=== PATIENT | male | born 2000 | race Caucasian/White ===

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

== ENCOUNTER 2021-01-03 19:02 | Emergency (ER) | payer OTHER ==
--- OUTSIDE RECORDS SUMMARY | 2021-01-03 19:06 | EXTERNAL MEDICAL SUMMARY RPT | Continuity of Care Document ---
:2000 Demographics Phone Unavailable Preferred Language Unknown Marital Status Unknown Confucianism Affiliation Unknown Race Unknown Ethnic Group Unknown Author Organization [facility] Address [address] [place] [address] Phone Allergies Encounters Medications Problems Results
--- OUTSIDE RECORDS SUMMARY | 2021-01-03 19:28 | EXTERNAL MEDICAL SUMMARY RPT | Continuity of Care Document ---
:2000 Demographics Phone Unavailable Preferred Language Unknown Marital Status Unknown Faith Affiliation Unknown Race Unknown Ethnic Group Unknown Author Organization [facility] Address [address] [place] [address] Phone Allergies Encounters Medications Problems Results
[2021-01-03] MEDS ORDERED: CHERRY SYRUP 10 ML UDC PO ONE (19:58)
[2021-01-03] MEDS ORDERED: DEXAMETHASONE 10 MG/ML VIAL PO STA (19:58)
[2021-01-03] MEDS ORDERED: AMOX/CLAV 875 MG/125 MG TABLET PO STA (19:58)
[2021-01-03 20:08] LABS: BASOPHILS # (AUTO) 0.1 10^3/uL (0.0-0.1); BASOPHILS % (AUTO) 0.5 %; EOSINOPHILS % (AUTO) 0.1 %; HCT - HEMATOCRIT 46.2 % (42.0-52.0); LYMPHOCYTES # (AUTO) 1.3 10^3/uL (1.5-3.5); LYMPHOCYTES % (AUTO) 13.3 %; MEAN CORPUSCULAR HEMOGLOBIN 29.4 pg (27.0-31.0); MEAN CORPUSCULAR HGB CONC 34.6 g/dL (32.0-36.0); MEAN CORPUSCULAR VOLUME 84.8 fL (80.0-94.0); MEAN PLATELET VOLUME 11.5 fL (7.4-11.4); MONOCYTES # (AUTO) 0.8 10^3/uL (0.0-1.0); MONOCYTES % (AUTO) 7.7 %; NEUTROPHILS # (AUTO) 7.8 10^3/uL (1.5-6.6); NEUTROPHILS % (AUTO) 78.1 %; PLT - PLATELET COUNT 182 10^3/uL (130-450); RED BLOOD COUNT 5.45 10^6/uL (4.70-6.10); RED CELL DISTRIBUTION WIDTH 12.6 % (12.0-15.0); WHITE BLOOD COUNT 9.9 x10^3/uL (4.8-10.8)
[2021-01-03 20:22] LABS: ACETAMINOPHEN < 10 ug/mL (10-30); ALBUMIN 5.3 g/dL (3.2-5.5); ALBUMIN/GLOBULIN RATIO 1.5 (1.0-2.2); ALKALINE PHOSPHATASE 76 IU/L (42-121); ALT ALANINE AMINOTRANSFERASE 29 IU/L (10-60); AST ASPARTATE AMINOTRANSFERASE 31 IU/L (10-42); BUN - BLOOD UREA NITROGEN 14 mg/dL (6-20); CALCIUM 9.9 mg/dL (8.5-10.3); CARBON DIOXIDE - CO2 26 mmol/L (21-32); CHLORIDE 103 mmol/L (101-111); ETOH - ETHANOL < 5.0 mg/dL; GFR - MDRD 96 (>89); GLUCOSE 107 mg/dL (70-100); LIPASE 23 U/L (22-51); SALICYLATE < 6.0 mg/dL; SODIUM 139 mmol/L (135-145); TOTAL PROTEIN 8.8 g/dL (6.7-8.2)
[2021-01-03 21:40] LABS: MUDS CUTOFF CONCENTRATIONS CUTOFF CONC BELOW:
[2021-01-03 21:42] LABS: BILIRUBIN,URINE NEGATIVE (NEGATIVE); GLUCOSE, URINE (UA) NEGATIVE (NEGATIVE); KETONES,URINE (UA) NEGATIVE (NEGATIVE); LEUKOCYTE ESTERASE, URINE NEGATIVE (NEGATIVE); NITRITE,URINE NEGATIVE (NEGATIVE); OCCULT BLOOD,URINE NEGATIVE (NEGATIVE); PROTEIN,URINE 30 mg/dL (NEGATIVE); UROBILINOGEN,URINE 0.2 (NORMAL) E.U./dL (NORMAL)
[2021-01-03 21:44] LABS: CLARITY,URINE CLEAR (CLEAR)
[2021-01-03 21:56] LABS: AMPHETAMINE SCREEN,URINE NEGATIVE (NEGATIVE); BARBITURATE SCREEN,UR NEGATIVE (NEGATIVE); BENZODIAZEPINES SCREEN, URINE NEGATIVE (NEGATIVE); COCAINE SCREEN URINE NEGATIVE (NEGATIVE); METHADONE SCREEN, URINE NEGATIVE (NEGATIVE); METHAMPHETAMINES SCREEN, URINE NEGATIVE (NEGATIVE); OPIATE SCREEN, URINE NEGATIVE (NEGATIVE); OXYCODONE SCREEN, URINE NEGATIVE (NEGATIVE); PROPOXYPHENE SCREEN, URINE NEGATIVE (NEGATIVE); THC CANNABINOID SCREEN, URINE POSITIVE (NEGATIVE); TRICYCLIC ANTIDEPRESSANT,URINE NEGATIVE (NEGATIVE)
--- NOTE | 2021-01-03 22:08 | ED Physician Documentation ---
PD HPI MHE - Stated complaint Stated Complaint: FIT FOR CONFINEMENT - Chief complaint Chief Complaint: General - History obtained from History obtained from: Patient - History of Present Illness Primary symptom: Suicidal ideation, Self harm - cut Timing - onset: Today Contributing factors: Sig other Similar symptoms before: Has not had sx before Recently seen: Not recently seen - Additional information Additional information: 20-year-old male was brought into the emergency department by police asking for a fit for confinement. The patient has scratches left forearm repeatedly with broken glass in a suicide attempt. He states that he is distraught over the break-up with his fiance and feels he has no reason to live. He does acknowledge a cough persistent for 8 months. He has had his tonsils out last year and this was after 8 episodes of tonsillitis. Review of Systems Constitutional: denies: Fever Eyes: denies: Decreased vision Ears: denies: Ear pain Nose: reports: Rhinorrhea / runny nose, Congestion Throat: denies: Sore throat Cardiac: denies: Chest pain / pressure, Palpitations Respiratory: reports: Cough. denies: Dyspnea GI: denies: Vomiting PD PAST MEDICAL HISTORY - Past Medical History Past Medical History: Yes Cardiovascular: None Respiratory: None Neuro: None Endocrine/Autoimmune: None GI: None : None HEENT: None, Other Psych: Depression Musculoskeletal: None Derm: None - Past Surgical History Past Surgical History: No HEENT: Tonsil/Adenoidectomy - Present Medications Home Medications: Ambulatory Orders Medication Instructions Recorded Confirmed Amox/Clav 875/125 [Augmentin] 1 each PO Q12H #20 tablet 01/03/21 - Allergies Allergies/Adverse Reactions: Allergies Allergy/AdvReac Type Severity Reaction Status Date / Time No Known Drug Allergies Allergy Verified 01/03/21 19:19 - Social History Does the pt smoke?: No Smoking Status: Never smoker Does the pt drink ETOH?: No Does the pt have substance abuse?: No - Immunizations Immunizations are current?: Yes - POLST Patient has POLST: No PD ED PE NORMAL - Vitals Vital signs reviewed: Yes (Tachycardic and hypertensive) - General General: Alert and oriented X 3, Well developed/nourished, Other (The patient is tearful on arrival to the emergency department) - HEENT HEENT: Atraumatic, PERRL, EOMI, Pharynx benign, Other (Both TMs are flush with distorted landmarks) - Neck Neck: Supple, no meningeal sign, No bony TTP - Cardiac Cardiac: No murmur, Other (Tachycardic to 100) - Respiratory Respiratory: No respiratory distress, Clear bilaterally - Abdomen Abdomen: Normal bowel sounds, Soft, Non tender, Non distended, No organomegaly - Back Back: No CVA TTP, No spinal TTP - Derm Derm: Normal color, Warm and dry, No rash - Extremities Extremities: No deformity, No edema, Other (There are multiple superficial hesitation zaragoza to the left forearm both vertically and horizontally. None are deep.) - Neuro Neuro: Alert and oriented X 3, core measures abstractor 2-12 intact, No motor deficit, No sensory deficit, Normal speech Eye Opening: Spontaneous Motor: Obeys Commands Verbal: Oriented GCS Score: 15 - Psych Psych: Other (The patient's mood is withdrawn and his affect is sad) Results - Vitals Vitals: Vital Signs - 24 hr 01/03/21 01/03/21 19:10 22:14 Temperature 36.8 C 36.5 C Heart Rate 124 H 90 Respiratory 16 16 Rate Blood Pressure 146/97 H 130/90 H O2 Saturation 93 94 Oxygen O2 Source Room air - Labs Labs: Laboratory Tests 01/03/21 01/03/21 01/03/21 20:03 20:03 21:30 WBC 9.9 RBC 5.45 Hgb 16.0 Hct 46.2 MCV 84.8 MCH 29.4 MCHC 34.6 RDW 12.6 Plt Count 182 MPV 11.5 H Neut # (Auto) 7.8 H Lymph # (Auto) 1.3 L Sibley # (Auto) 0.8 Eos # (Auto) 0.0 Baso # (Auto) 0.1 Absolute Nucleated RBC 0.00 Nucleated RBC % 0.0 Sodium 139 Potassium 4.0 Chloride 103 Carbon Dioxide 26 Anion Gap 10.0 BUN 14 Creatinine 1.0 Estimated GFR (MDRD) 96 Glucose 107 H Calcium 9.9 Total Bilirubin 1.0 AST 31 ALT 29 Alkaline Phosphatase 76 Total Protein 8.8 H Albumin 5.3 Globulin 3.5 Albumin/Globulin Ratio 1.5 Lipase 23 Urine Color YELLOW Urine Clarity CLEAR Urine pH 6.0 Ur Specific Willard >=1.030 H Urine Protein 30 H Urine Glucose (UA) NEGATIVE Urine Ketones NEGATIVE Urine Occult Blood NEGATIVE Urine Nitrite NEGATIVE Urine Bilirubin NEGATIVE Urine Urobilinogen 0.2 (NORMAL) Ur Leukocyte Esterase NEGATIVE Urine RBC None Seen Urine WBC 0-3 Ur Squamous Epith Cells NONE SEEN Urine Bacteria None Seen Urine Casts 3-5 Fine Granular Ur Microscopic Review INDICATED Urine Culture Comments NOT INDICATED Salicylates < 6.0 Urine Opiates Screen NEGATIVE Ur Oxycodone Screen NEGATIVE Urine Methadone Screen NEGATIVE Ur Propoxyphene Screen NEGATIVE Acetaminophen < 10 L Ur Barbiturates Screen NEGATIVE Ur Tricyclics Screen NEGATIVE Ur Phencyclidine Scrn NEGATIVE Ur Amphetamine Screen NEGATIVE U Methamphetamines Scrn NEGATIVE U Benzodiazepines Scrn NEGATIVE Urine Cocaine Screen NEGATIVE U Cannabinoids Screen POSITIVE H Ethyl Alcohol < 5.0 PD MEDICAL DECISION MAKING - ED course Complexity details: reviewed results, re-evaluated patient, considered differential, d/w patient ED course: 20-year-old male presents to the emergency department with acute suicidal ideation and hesitation zaragoza to the left forearm. He is in police custody and will be taken to the [facility] from here. He does have otitis on exam and he has a history of ENT infection that has been difficult to control. His pharynx looks normal today. He has bilateral otitis and he is treated with dexamethasone and Augmentin. Prior to leaving the emergency department the patient appears to have improved. He is discharged into custody of police to have mental health evaluation done at the [facility]. Departure - Departure Disposition: 01 Home, Self Care Clinical Impression: Suicidal ideation Abrasion of forearm Qualifiers: Encounter type: initial encounter Laterality: left Qualified Code(s): S50.812A - Abrasion of left forearm, initial encounter Otitis media Qualifiers: Otitis media type: suppurative Chronicity: acute Laterality: bilateral Recurrence: not specified as recurrent Spontaneous tympanic membrane rupture: without spontaneous rupture Qualified Code(s): H66.003 - Acute suppurative otitis media without spontaneous rupture of ear drum, bilateral Condition: Stable Instructions: ED Abrasion, ED Otitis Media Acute Adult Follow-Up: Price Munoz MD [Physician No Access] - Prescriptions: Amox/Clav 875/125 [Augmentin] 1 each PO Q12H #20 tablet Discharge Date/Time: 01/03/21 22:14
[2021-01-03 22:16] VITALS: BP 130/90
[2021-01-03 22:18] LABS: BACTERIA,URINE None Seen /HPF (None Seen); CASTS, URINE 3-5 Fine Granular /LPF; RBC,URINE None Seen /HPF (0-5); SQUAMOUS EPITHELIAL CELL,UR NONE SEEN (<= Few); WBC,URINE 0-3 /HPF (0-3)
== END 2021-01-03 22:14 | disposition home or self-care (01) ==
LOC: ED 19:02
DX: S50.812A Abrasion of left forearm, initial encounter (principal); X78.0XXA Intentional self-harm by sharp glass, initial encounter; H66.003 Acute suppurative otitis media without spontaneous rupture of ear drum, bilateral
CPT/HCPCS: 36415; 80053; 80306; 80307; 80320; 80329; 81001; 83690; 85025; 99283; 99284; A9270; 81003; 87086

== ENCOUNTER 2021-06-28 12:17 | Emergency (ER) | payer OTHER, MEDICAID ==
[2021-06-28 12:34] VITALS: BP 143/82
[2021-06-28] MEDS ORDERED: ALBUTEROL 1 PUFF INH STA (15:02)
--- NOTE | 2021-06-28 15:06 | ED Physician Documentation ---
PD HPI URI - Stated complaint Stated Complaint: COUGH - Chief complaint Chief Complaint: Heent - History obtained from History obtained from: Patient - History of Present Illness Timing - onset: How many days ago (3) Timing duration: Days (3) Timing details: Gradual onset Pain level max: 0 Pain level now: 0 Associated symptoms: Nasal congestion, Rhinorrhea, Productive cough (Occasional clear sputum). No: Fever, Chills, Sweats, Ear pain, Sinus pain, Sore throat, Swollen nodes, Dry cough, Hemoptysis, Chest pain, Dyspnea, NVD, Bilateral edema, Unilateral edema - Additional information Additional information: Patient with 3 days of cough and nasal congestion. He is not vaccinated for Covid. He quit smoking cigarettes 2 weeks ago. He does vape and smoke marijuana. No fevers. No recent travel. Nothing makes it better or worse. Review of Systems Constitutional: denies: Fever, Chills GI: denies: Vomiting, Diarrhea Skin: denies: Rash Musculoskeletal: denies: Neck pain, Back pain Neurologic: denies: Headache PD PAST MEDICAL HISTORY - Past Medical History Cardiovascular: None Respiratory: None Neuro: None Endocrine/Autoimmune: None GI: None : None HEENT: None, Other Psych: Depression Musculoskeletal: None Derm: None - Past Surgical History Past Surgical History: No HEENT: Tonsil/Adenoidectomy - Present Medications Home Medications: Ambulatory Orders Medication Instructions Recorded Confirmed Amox/Clav 875/125 [Augmentin] 1 each PO Q12H #20 tablet 01/03/21 Albuterol Sulf [Ventolin Hfa 1 - 2 puffs INH Q4HR PRN #1 inhaler 06/28/21 Inhaler] Benzonatate [Tessalon] 200 mg PO TID PRN #30 cap 06/28/21 Cetirizine HCl/Pseudoephedrine 1 each PO BID PRN #30 ea 06/28/21 [Zyrtec-D Tablet] - Allergies Allergies/Adverse Reactions: Allergies Allergy/AdvReac Type Severity Reaction Status Date / Time No Known Drug Allergies Allergy Verified 06/28/21 12:34 - Social History Does the pt smoke?: No Smoking Status: Never smoker Does the pt drink ETOH?: No Does the pt have substance abuse?: No - Immunizations Immunizations are current?: Yes - POLST Patient has POLST: No PD ED PE NORMAL - Vitals Vital signs reviewed: Yes - General General: Alert and oriented X 3, No acute distress - HEENT HEENT: Moist mucous membranes - Neck Neck: Supple, no meningeal sign - Cardiac Cardiac: RRR, Strong equal pulses - Respiratory Respiratory: No respiratory distress, Clear bilaterally - Abdomen Abdomen: Soft, Non tender, Non distended - Derm Derm: Warm and dry - Neuro Neuro: Alert and oriented X 3 - Psych Psych: Normal mood, Normal affect Results - Vitals Vitals: Vital Signs - 24 hr 06/28/21 06/28/21 06/28/21 12:29 15:21 15:40 Temperature 37 C Heart Rate 90 80 80 Respiratory 16 16 16 Rate Blood Pressure 143/82 H 143/82 H O2 Saturation 96 98 Oxygen O2 Source Room air - Rads (name of study) cxr Radiology: Final report received, EMP read contemporaneously, See rad report (no acute abnormality) PD MEDICAL DECISION MAKING - ED course Complexity details: reviewed results, re-evaluated patient, considered differential, d/w patient ED course: No acute findings on x-ray. We will have the patient follow-up with his doctor for further care. Patient is well-appearing, nontoxic. Afebrile. Covid testing performed. Patient counseled regarding signs and symptoms for which I believe and urgent re-evaluation would be necessary. Patient with good understanding of and agreement to plan and is comfortable going home at this time This document was made in part using voice recognition software. While efforts are made to proofread this document, sound alike and grammatical errors may occur. Departure - Departure Disposition: 01 Home, Self Care Clinical Impression: Viral URI Condition: Good Instructions: ED Viral Syndrome Follow-Up: your,doctor as needed. [Other] Prescriptions: Albuterol Sulf [Ventolin Hfa Inhaler] 1 - 2 puffs INH Q4HR PRN #1 inhaler PRN Reason: Shortness Of Air/Wheezing Benzonatate [Tessalon] 200 mg PO TID PRN #30 cap PRN Reason: Cough Cetirizine HCl/Pseudoephedrine [Zyrtec-D Tablet] 1 each PO BID PRN #30 ea PRN Reason: nasal congestion Comments: Please follow-up with your doctor as needed for further care. Your x-ray does not show any acute abnormalities today. Your prescriptions were sent to [facility] in [place]. You have a Covid test pending. You need to self quarantine until the result is done and negative. The results should be done in 24-48 hours. We will call with a positive result, the fastest way to get a negative result for confirmation though is to go to the hospital website at [email or web address], click on the my [facility] tab and sign up for the patient portal. If any of your friends and/or family need to be tested, they can call the hospital at [phone] for an appointment to have their Covid test. Discharge Date/Time: 06/28/21 15:45
--- NOTE | 2021-06-28 15:30 | XRAY Report ---
PROCEDURE: Chest 1 View X-Ray INDICATIONS: LLL wheezing, cough TECHNIQUE: One view of the chest was acquired. COMPARISON: None FINDINGS: Surgical changes and devices: None. Lungs and pleura: No pleural effusions or pneumothorax. Lungs are clear. Mediastinum: Mediastinal contours appear normal. Heart size is normal. Bones and chest wall: No suspicious bony lesions. Overlying soft tissues appear unremarkable. IMPRESSION: No acute pulmonary process. Reviewed by: Renuka Helton MD on 06/28/2021 3:29 PM [facility] Approved by: Renuka Helton MD on 06/28/2021 3:29 PM [facility] Station ID: [id number]
== END 2021-06-28 15:45 | disposition home or self-care (01) ==
LOC: ED 12:17
DX: J06.9 Acute upper respiratory infection, unspecified (principal); Z87.891 Personal history of nicotine dependence
CPT/HCPCS: 94640; 99283; 99284